=== PATIENT | female | born 1955 ===

== ENCOUNTER 2017-10-17 11:00 | Inpatient (IN) | payer BC, MEDICARE ==
[~2017-10-17] VITALS: Ht 149.9 cm; Wt 53.5 kg
[~2017-10-17 11:00] MED LIST: BACITRACIN 50,000 UNITS/VIAL ONE; CLINDAMYCIN PHOS 2% 40 GM VAGINAL CREAM VG ONE; CeFAZolin 2 GM/DEXTROSE 50 ML IV ONE; LIDOCAINE HCL 1%/EPI 1:200,000/PF 10 ML VIAL ONE; RINGERS SOLUTION,LACTATED 1,000 ML IV ONE; SODIUM CHLORIDE 0.9% 10 ML ONE
[2017-10-17] MEDS ORDERED: SODIUM PHOS/SODIUM BIPHOS 133 ML ENEMA PR ONE (11:45)
[2017-10-17 11:52] LABS: BASOPHILS % (AUTO) 1.2 % (0.0-2.0); EOSINOPHILS % (AUTO) 3.9 % (1.0-6.0); HEMATOCRIT 39.6 % (36-46); HEMOGLOBIN 13.5 g/dL (12.0-16.0); LYMPHOCYTES # (AUTO) 1.2 K/uL (1.0-4.8); LYMPHOCYTES % (AUTO) 33.5 % (22.0-44.0); MEAN CORPUSCULAR HEMOGLOBIN 30.2 pg (26.0-34.0); MEAN CORPUSCULAR HGB CONC 34.2 G/dL (31.0-37.0); MEAN CORPUSCULAR VOLUME 88 fL (80-100); MONOCYTES # (AUTO) 0.3 K/uL (0.1-1.0); MONOCYTES % (AUTO) 8.5 % (2.0-9.0); NEUTROPHILS # (AUTO) 1.9 K/uL (1.8-7.7); NEUTROPHILS % (AUTO) 52.9 % (40.0-70.0); PLATELET COUNT (AUTO) 156 K/uL (150-450); RED BLOOD CELL COUNT(AUTO) 4.48 MIL/uL (4.00-5.20); RED CELL DISTRIBUTION WIDTH 12.3 % (11.5-14.5); WHITE BLOOD COUNT (AUTO) 3.6 K/uL (4.5-11.0)
[2017-10-17 12:03] LABS: ANION GAP 7 mmol/L (8-16); CALCIUM, TOTAL 8.9 mg/dL (8.8-10.5); CARBON DIOXIDE 29 mmol/L (22-29); CHLORIDE 107 mmol/L (98-107); CREATININE 0.52 mg/dL (0.60-1.30); GLOMERULAR FILTR. RATE CALC > 60 mL/min (>60); POTASSIUM 4.3 mmol/L (3.5-5.1); SODIUM SERUM 143 mmol/L (136-145); UREA NITROGEN, BLOOD 18 mg/dL (7-18)
[2017-10-17 12:05] LABS: PROTHROMBIN TIME 10.5 SEC (9.4-11.6)
[2017-10-17] MEDS ORDERED: ACETAMINOPHEN 1000 MG/ISO-OSM 100 ML IV ONE (12:41)
[2017-10-17] MEDS ORDERED: SCOPOLAMINE HYDROBROMIDE 1.5 MG PATCH TD ONE (12:45)
[2017-10-17] MEDS ORDERED: RINGERS SOLUTION,LACTATED 1,000 ML IV ONE (14:10)
[2017-10-17] MEDS ORDERED: MEPERIDINE-PF 25 MG/ML SYRINGE IVP PRN (14:45)
[2017-10-17] MEDS ORDERED: FentaNYL CITRATE-PF 100 MCG/2 ML VIAL IVP PRN (14:45)
[2017-10-17] MEDS ORDERED: OxyCODONE HCL/ACETAMINOPHEN 5-325 MG TABLET PO PRN (14:45)
[2017-10-17] MEDS ORDERED: HYDROmorphone 2 MG/ML SYRINGE IVP PRN (14:45)
[2017-10-17] MEDS ORDERED: PROMETHAZINE HCL 25 MG/ML VIAL IM PRN (14:45)
[2017-10-17] MEDS ORDERED: FentaNYL CITRATE-PF 100 MCG/2 ML VIAL IVP ONE (17:34)
[2017-10-17] MEDS ORDERED: KETOROLAC TROMETHAMINE 60 MG/2 ML VIAL IM ONE (17:34)
[2017-10-17] MEDS ORDERED: LIDOCAINE HCL/PF 2% 5 ML VIAL IM ONE (17:34)
[2017-10-17] MEDS ORDERED: DEXAMETHASONE SOD PHOS 4 MG/ML VIAL IVP ONE (17:34)
[2017-10-17] MEDS ORDERED: ONDANSETRON HCL 4 MG/2 ML VIAL IVP ONE (17:34)
[2017-10-17] MEDS ORDERED: PROPOFOL 1% 20 ML VIAL IVP ONE (17:34)
[2017-10-17] MEDS ORDERED: MIDAZOLAM HCL 2 MG/2 ML VIAL IVP ONE (17:34)
[2017-10-17] MEDS ORDERED: METOCLOPRAMIDE HCL 5 MG/ML 2 ML VIAL IVP ONE (17:34)
[2017-10-17] MEDS ORDERED: OXYGEN THERAPY IH SCH (20:00)
== END 2017-10-17 17:35 | disposition home or self-care (01) | DRG 748 ==
LOC: 4E 11:00 → EEVIPCON 11:00
PROVIDERS: ADMIT Obstetrics & Gynecology; ATTEND Obstetrics & Gynecology
PROC: 0JQC0ZZ Repair Pelvic Region Subcutaneous Tissue and Fascia, Open Approach (ICD-10-PCS; 2017-10-17)
PROC: 0TSD0ZZ Reposition Urethra, Open Approach (ICD-10-PCS; principal; 2017-10-17 12:30)
DX: N39.3 Stress incontinence (female) (male) (principal); L02.235 Carbuncle of perineum; N81.6 Rectocele; Z95.0 Presence of cardiac pacemaker; Z90.49 Acquired absence of other specified parts of digestive tract
CPT/HCPCS: 93005; J0131; J0690; J1100; J1885; J2250; J2405; J2704; J2765; J3010; J3490; J7120